=== PATIENT | male | born 1995 | race Caucasian/White ===

== ENCOUNTER 2018-04-10 18:57 | Emergency (ER) | payer OTHER ==
[~2018-04-10] VITALS: Ht 180.3 cm; Wt 59.0 kg
[2018-04-10] MEDS ORDERED: VALTREX1000 MG PO (19:09)
[2018-04-10 19:32] LABS: ABSOLUTE EOSINOPHILS 0.1 thou/uL (0.0-0.7); ABSOLUTE LYMPHOCYTES 1.6 thou/uL (0.8-5.3); ABSOLUTE MONOCYTES 0.9 thou/uL (0.0-1.2); ABSOLUTE NEUTROPHILS 3.4 thou/uL (1.6-8.1); BASOPHILS 0.6 %; EOSINOPHILS 0.9 %; HEMATOCRIT 46.1 % (42.0-52.0); HEMOGLOBIN 16.1 gm/dL (14.0-18.0); LYMPHOCYTES 26.1 %; MCH 30.5 pg (26.0-34.0); MCHC 34.8 g/dL (28.0-37.0); MCV 87.5 fL (80.0-100.0); MONOCYTES 15.3 %; MPV 8.3 fl. (7.2-11.1); NUCLEATED RBCS 0 /100WBC; PLATELET COUNT* 176 thou/uL (150-400); POLYS 57.1 %; RBC 5.27 mil/uL (4.50-6.00); RDW-CV 12.2 % (10.5-14.5)
[2018-04-10] MEDS ORDERED: AMOXICILLIN 50500 MG PO (20:12)
[2018-04-10] MEDS ORDERED: MAGIC MOUTHWASH SWISH&SPIT (20:12)
[2018-04-10 20:38] VITALS: BP 124/71
== END 2018-04-10 20:38 | disposition home or self-care (01) ==
LOC: M.ERS 18:57
PROVIDERS: Nurse Practitioner Psychiatric/Mental Health
DX: K12.0 Recurrent oral aphthae (principal); B00.9 Herpesviral infection, unspecified